=== PATIENT | female | born 1950 | race Caucasian/White ===

== ENCOUNTER → 2018-04-08 13:31 | Outpatient (CLI) | payer OTHER, MEDICARE, SELFPAY ==
--- NOTE | 2018-05-26 10:47 | ONC.NAV ---
Description: T/C-Transfer back to [facility] from [facility] Activity: HAKAN called and we talked about how she can choose to come back here to see Dr. Velez if she would like to. She said that she has an appointment with Dr. Clay at [facility] already set for next month. I encouraged her to talk with him about it, but if she would like to return here, we wanted her to know. She thanked me and will decide over the next month what she wants to do.
== END ==
PROVIDERS: Family Provider Internal Medicine; Referring Provider Internal Medicine Hematology & Oncology; Visit Provider Internal Medicine
DX: M85.852 Other specified disorders of bone density and structure, left thigh (principal); Z78.0 Asymptomatic menopausal state; Z85.3 Personal history of malignant neoplasm of breast; Z82.62 Family history of osteoporosis
CPT/HCPCS: 77080

== ENCOUNTER → 2020-08-01 19:25 | Outpatient (ROUT) | payer MEDICARE, SELFPAY ==
[2020-08-01 19:59] LABS: Aspartate Aminotransferase 40 IU/L (14-36); BUN Creatinine Ratio 24.7 (6-22); Blood Urea Nitrogen 18 mg/dL (7-17); Calcium 9.3 mg/dL (8.4-10.2); Carbon Dioxide 30 mmol/L (22-32); Chloride 107 mmol/L (98-107); Cholesterol 124 mg/dL (140-199); Estimated Glomerular Filt Rate > 60.0 mL/min (>60); Glucose 94 mg/dL (80-110); HDL Cholesterol 53 mg/dL (40-60); HEMOLYSIS < 15 (0-50); LDL Cholesterol Calculated 51 mg/dL (<100); Potassium 4.5 mmol/L (3.4-5.1); Sodium 139 mmol/L (137-145); Triglycerides 99 mg/dL (35-150)
== END ==
PROVIDERS: Family Provider Internal Medicine; PCP Internal Medicine; Visit Provider Internal Medicine
DX: I10 Essential (primary) hypertension (principal); E78.2 Mixed hyperlipidemia
CPT/HCPCS: 80048; 80061; 84450

== ENCOUNTER → 2021-05-28 10:24 | Outpatient (CLI) | payer OTHER, SELFPAY ==
--- NOTE | 2021-05-28 | DI.US.S_ITS ---
PROCEDURE: US ABDOMEN COMPLETE INDICATIONS: ABDOMINAL PAIN TECHNIQUE: Real-time scanning was performed of the abdominal and retroperitoneal organs, with image documentation. COMPARISON: [facility], CT, IVP (ABD & PEL WWO CONTRAST), 11/14/2014, 9:46. [facility], CT, CT ABD PELVIS W CON, 11/24/2015, 17:59. [facility], US, ABDOMEN COMPLETE, 11/09/2014, 14:34. FINDINGS: Liver: The liver demonstrates prominent size. The liver demonstrates generalized moderately increased echogenicity. This decreases ultrasound sensitivity for detection of hepatic masses. Gallbladder: No findings of gallstones or sludge are seen. The gallbladder wall is not thickened, measuring 3 mm or less. No specific pericholecystic fluid is seen. The sonographic Canales sign is negative. Biliary ducts: Not well seen. Intrahepatic bile ducts are non-dilated. Extrahepatic bile duct caliber measures 4 mm. Normal is 6-7 mm or less in diameter, or 10 mm or less post-cholecystectomy. Pancreas: The pancreas is overall not well seen. Spleen: Spleen is normal in size and homogeneous in echotexture. Kidneys: Kidneys are normal in size and echotexture. Right kidney measures 12.4 cm long; left kidney measures 12.8 cm long. No hydronephrosis or nephrolithiasis. No solid masses. Likely left kidney peripelvic cysts can be seen. Aorta: Not well seen, yet no aneurysm can be seen. Iliacs: Not well seen. No aneurysm. IVC: Intrahepatic inferior vena cava is patent. Miscellaneous: No free abdominal fluid. This study is limited by body habitus. IMPRESSION: Limited study demonstrating an enlarged, fatty liver. Incidental note is made of: Left kidney peripelvic cysts Dictated by: Olivier Laura M.D. on 05/28/2021 at 10:16 Approved by: Olivier Laura M.D. on 05/28/2021 at 10:19
== END ==
PROVIDERS: Family Provider Internal Medicine; PCP Internal Medicine; Referring Provider Internal Medicine; Visit Provider Internal Medicine
DX: R10.9 Unspecified abdominal pain (principal); K76.0 Fatty (change of) liver, not elsewhere classified; N28.1 Cyst of kidney, acquired
CPT/HCPCS: 76700

== ENCOUNTER → 2021-07-11 12:44 | Outpatient (CLI) | payer OTHER, SELFPAY ==
--- NOTE | 2021-07-11 12:46 | DI.US.S_ITS ---
PROCEDURE: US PELVIC COMPLETE INDICATIONS: OVARIAN CYST TECHNIQUE: Real-time scanning was performed of the pelvic organs, with image documentation. Additional endovaginal scanning was necessary due to incomplete visualization of the adnexal and endometrial structures by transabdominal scanning. COMPARISON: [facility], , PELVIC COMPLETE, 02/26/2016, 14:36. FINDINGS: Uterus: Prior hysterectomy. Ovaries: Neither normal ovaries seen. Right adnexal simple cyst again visualized measuring up to 3.7 cm (previously 2.7 cm) Other: No pathologic free abdominal or pelvic fluid. IMPRESSION: Simple cyst within the right adnexa slightly increased in size compared to prior examination now measuring up to 3.7 cm. Continued annual sonographic surveillance is recommended. Dictated by: Juan RICKETTS Interpreted: Yvan Boyd MD on 07/11/2021 at 13:14 Transcribed by: AARON on 07/11/2021 at 13:17 Approved by: Yvan Boyd M.D. on 07/11/2021 at 14:32
== END ==
PROVIDERS: Family Provider Internal Medicine; PCP Internal Medicine; Referring Provider Internal Medicine; Visit Provider Internal Medicine
DX: N83.291 Other ovarian cyst, right side (principal)
CPT/HCPCS: 76830; 76856

== ENCOUNTER → 2022-10-10 15:34 | Outpatient (CLI) | payer MEDICARE, SELFPAY ==
--- NOTE | 2022-10-10 15:36 | DI.MRI.S_ITS ---
PROCEDURE: MR LUMBAR SPINE WO CON INDICATIONS: spinal stenosis TECHNIQUE: Noncontrast sagittal T1 spin echo and T2 fast echo, sagittal STIR, and T2 fast spin echo through the lumbar spine. In cases with scoliosis, additional coronal T2 fast spin echo may be performed. COMPARISON: [facility], , L-SPINE WITHOUT CONTRAST, 10/01/2016, 16:57. FINDINGS: Image quality: Excellent. Alignment and Curvature: There is normal bony alignment. Bone Marrow: Marrow is of normal overall signal. No acute vertebral body compression fractures. Spinal Cord: Conus medullaris terminates at the L1 level. Visualized cord demonstrates normal signal and size. Paraspinous Soft Tissues: No paravertebral masses. T12-L1: Normal appearance. L1-L2: Normal appearance. L2-L3: Mild disc space narrowing and circumferential disc bulge without central stenosis. No foraminal stenosis L3-L4: Disc space narrowing with circumferential disc bulge and superimposed central protrusion results in moderate central stenosis. Moderate bilateral foraminal stenosis L4-L5: Disc space narrowing and circumferential disc bulge noted. Left hemilaminectomy. Hypertrophic facet joints. No central stenosis. Moderate left and no right foraminal stenosis L5-S1: Disc space narrowing and circumferential disc bulge with hypertrophic facet joints present. Mild central stenosis. Moderate left and mild right foraminal stenosis IMPRESSION: Multilevel degenerative disc disease and arthropathy results in varying degrees of central and foraminal stenosis including moderate central stenosis at L3-4 as result of disc bulge and superimposed central protrusion. Prior left hemilaminotomy noted at L4-5 Approved by: Emile Tobias M.D. on 10/10/2022 at 18:00
== END ==
PROVIDERS: Family Provider Internal Medicine; PCP Internal Medicine; Referring Provider Internal Medicine; Visit Provider Internal Medicine
DX: M48.07 Spinal stenosis, lumbosacral region (principal); M48.061 Spinal stenosis, lumbar region without neurogenic claudication; M51.36 Other intervertebral disc degeneration, lumbar region; M51.37 Other intervertebral disc degeneration, lumbosacral region; M47.816 Spondylosis without myelopathy or radiculopathy, lumbar region; M47.817 Spondylosis without myelopathy or radiculopathy, lumbosacral region; M54.50 Low back pain, unspecified; G89.29 Other chronic pain
CPT/HCPCS: 72148

== ENCOUNTER → 2022-12-27 09:29 | Outpatient (CLI) | payer MEDICARE, SELFPAY ==
[2022-12-27 14:52] LABS: Alanine Aminotransferase 46 IU/L (<35); Albumin 4.4 g/dL (3.5-5.0); Albumin Globulin Ratio 1.5 (1.0-2.8); Alkaline Phosphatase 117 U/L (38-126); Aspartate Aminotransferase 47 IU/L (14-36); BUN Creatinine Ratio 23.5 (6-22); Bilirubin Total 0.9 mg/dL (0.2-1.3); Blood Urea Nitrogen 16 mg/dL (7-17); Calcium 9.4 mg/dL (8.4-10.2); Carbon Dioxide 25 mmol/L (22-32); Chloride 106 mmol/L (98-107); Cholesterol 137 mg/dL (140-199); Estimated Glomerular Filt Rate > 60 mL/min (>60); Glucose 97 mg/dL (80-110); HDL Cholesterol 55 mg/dL (40-60); HEMOLYSIS 27 (0-50); LDL Cholesterol Calculated 65 mg/dL (<100); Potassium 4.3 mmol/L (3.4-5.1); Sodium 141 mmol/L (137-145); Total Protein 7.4 g/dL (6.3-8.2); Triglycerides 84 mg/dL (35-150)
[2022-12-27 15:36] LABS: TSH w/ Reflex to FT4 2.61 uIU/mL (0.47-4.68)
[2022-12-28 05:17] LABS: x Labcorp Estim. Avg Glu (eAG) 123 mg/dL (.); x Labcorp Hemoglobin A1c 5.9 % (4.8-5.6)
== END ==
PROVIDERS: Family Provider Internal Medicine; PCP Internal Medicine; Referring Provider Internal Medicine; Visit Provider Internal Medicine
DX: E78.2 Mixed hyperlipidemia; C50.912 Malignant neoplasm of unspecified site of left female breast; I10 Essential (primary) hypertension
CPT/HCPCS: 36415; 80053; 80061; 83036; 84443

== ENCOUNTER → 2023-04-02 11:21 | Outpatient (CLI) | payer MEDICARE, SELFPAY ==
--- NOTE | 2023-04-02 11:22 | DI.US.S_ITS ---
PROCEDURE: US ABDOMEN LIMITED INDICATIONS: RIGHT UPPER QUADRANT PAIN TECHNIQUE: Real-time scanning was performed of the abdominal and retroperitoneal organs, with image documentation. COMPARISON: , , US ABDOMEN COMPLETE, 05/28/2021, 10:39. FINDINGS: Liver: Hepatic parenchyma shows diffuse increased echogenicity consistent with fatty infiltration. Gallbladder: Sonolucent without cholelithiasis. No gallbladder wall thickening. No pericholecystic fluid or Canales's sign. Common Bile Duct: 4.5 mm. Pancreas: Unremarkable as visualized Right Kidney: Mild fullness of the right renal collecting system without alex hydronephrosis IMPRESSION: 1. Mild fullness of the right renal collecting system without alex hydronephrosis may reflect an extrarenal pelvis. 2. Hepatic fatty infiltration Approved by: Emile Tobias M.D. on 04/02/2023 at 20:02
== END ==
PROVIDERS: Family Provider Internal Medicine; PCP Internal Medicine; Referring Provider Internal Medicine; Visit Provider Internal Medicine
DX: R10.11 Right upper quadrant pain (principal); K76.0 Fatty (change of) liver, not elsewhere classified
CPT/HCPCS: 76705

== ENCOUNTER → 2023-07-16 14:43 | Outpatient (CLI) | payer MEDICARE, SELFPAY ==
--- NOTE | 2023-07-16 14:45 | DI.US.S_ITS ---
PROCEDURE: US PELVIC COMPLETE INDICATIONS: ovarian cyst followup TECHNIQUE: Real-time scanning was performed of the pelvic organs, with image documentation. Additional endovaginal scanning was necessary due to incomplete visualization of the adnexal and endometrial structures by transabdominal scanning. COMPARISON: [facility], CT, IVP (ABD & PEL WWO CONTRAST), 11/14/2014, 9:46. [facility], US, US PELVIC COMPLETE, 07/11/2021, 12:51. FINDINGS: Uterus: Status post hysterectomy Ovaries: The ovaries are not visualized. In the right adnexa there is an anechoic cystic structure measuring 4.1 x 3.4 x 3.8 cm, similar to the prior ultrasound when it measured 3.7 x 3.3 x 3.5 cm. There is no associated soft tissue component. Other: No pathologic free abdominal or pelvic fluid. IMPRESSION: Right adnexal cystic structure is unchanged compared to ultrasound on 07/11/2021. This was also present on a more remote CT on 11/14/2014 and is therefore likely benign. We strive to produce accurate, complete, and clear reports of imaging services. To assist us in improving patient care, this report was composed using standard report templates and voice recognition software. Therefore, it may contain abnormal punctuation, insertions and/or omissions. Occasional wrong-word or sound-alike substitutions may occur. Though we review the report and make efforts to correct it, we do recommend that the report be read carefully in proper context to recognize any text inaccuracies. Dictated by: Mario Ye M.D. on 07/16/2023 at 17:44 Approved by: Mario Ye M.D. on 07/16/2023 at 17:47
[2023-07-16 15:14] LABS: Hemoglobin A1C% w Est Avg Glu 6.1 % (4.0-6.0)
[2023-07-16 15:20] LABS: BUN Creatinine Ratio 17.5 (6-22); Blood Urea Nitrogen 14 mg/dL (7-17); Calcium 9.7 mg/dL (8.4-10.2); Carbon Dioxide 25 mmol/L (22-32); Chloride 107 mmol/L (98-107); Estimated Glomerular Filt Rate > 60 mL/min (>60); Glucose 104 mg/dL (80-110); HEMOLYSIS < 15 (0-50); Potassium 3.8 mmol/L (3.4-5.1); Sodium 139 mmol/L (137-145)
== END ==
PROVIDERS: Family Provider Internal Medicine; PCP Internal Medicine; Referring Provider Internal Medicine; Visit Provider Internal Medicine
DX: N83.209 Unspecified ovarian cyst, unspecified side (principal); N94.89 Other specified conditions associated with female genital organs and menstrual cycle; R73.01 Impaired fasting glucose; I10 Essential (primary) hypertension; Z90.710 Acquired absence of both cervix and uterus
CPT/HCPCS: 36415; 76830; 76856; 80048; 83036

== ENCOUNTER → 2023-08-18 11:00 | Outpatient (CLI) | payer MEDICARE, SELFPAY ==
--- NOTE | 2023-08-18 11:01 | DI.MRI.S_ITS ---
PROCEDURE: MR LUMBAR SPINE WO CON INDICATIONS: Radiculopathy, lumbar region TECHNIQUE: Noncontrast sagittal T1 spin echo and T2 fast echo, sagittal STIR, and T2 fast spin echo through the lumbar spine. In cases with scoliosis, additional coronal T2 fast spin echo may be performed. COMPARISON: [facility], CR, XR LUMBAR SPINE FLEXION EXTENSION, 07/16/2023, 13:06. [facility], MR, MR LUMBAR SPINE WO CON, 10/10/2022, 15:55. FINDINGS: Image quality: Excellent. Alignment and Curvature: There is normal bony alignment. No significant change. Disc desiccation L3-4, L4-5, and L5-S1. No acute progression in disc height loss. Bone Marrow: Marrow is of normal overall signal. L2 and L3 vertebral body hemangioma. No acute vertebral body compression fractures. No marrow edema. Spinal Cord: Conus medullaris terminates at the L1 level. Visualized cord demonstrates normal signal and size. Paraspinous Soft Tissues: No paravertebral masses. T12-L1: Normal appearance. L1-L2: Mild broad-based left foraminal disc bulge has developed since the prior study and there is new mild neural foraminal narrowing on the left. L2-L3: Mild disc desiccation and minor circumferential disc bulge without progression. Mild facet arthropathy and ligamentum flavum hypertrophy. L3-L4: Disc desiccation and mild circumferential disc bulge. Focal central disc protrusion with cranial and caudal disc extrusion 6-7 mm above and below the disc line, mildly progressed since the prior exam. Similar degree of moderate central canal stenosis and narrowing of the left lateral recess. Mild to moderate stable left foraminal stenosis. L4-L5: Left hemilaminectomy change. Mild circumferential disc bulge and mild facet arthropathy. Facet arthropathy and disc material contribute to [id number] left foraminal narrowing, stable. No new central canal stenosis. L5-S1: Mild broad-based circumferential disc bulge with mild, stable central canal stenosis. Mild facet arthropathy. Mild right and moderate left foraminal narrowing. No significant change. IMPRESSION: 1. Slight progression of degree of disc extrusion at the L3-4 level without significant progression of central canal stenosis and left lateral recess narrowing. 2. Multilevel circumferential disc bulges with multilevel mainly left foraminal stenosis. No other significant change since the prior study. Dictated by: Clau Moser M.D. on 08/18/2023 at 15:46 Approved by: Clau Moser M.D. on 08/18/2023 at 15:59
== END ==
PROVIDERS: Family Provider Internal Medicine; PCP Internal Medicine; Referring Provider Physician Assistant Surgical; Visit Provider Physician Assistant Surgical
DX: M51.16 Intervertebral disc disorders with radiculopathy, lumbar region (principal); M51.17 Intervertebral disc disorders with radiculopathy, lumbosacral region; M48.061 Spinal stenosis, lumbar region without neurogenic claudication; M48.07 Spinal stenosis, lumbosacral region; Z98.890 Other specified postprocedural states
CPT/HCPCS: 72148

== ENCOUNTER → 2023-09-29 11:50 | Outpatient (CLI) | payer MEDICARE, SELFPAY ==
[2023-09-29 13:23] LABS: BUN Creatinine Ratio 23.6 (6-22); Blood Urea Nitrogen 17 mg/dL (7-17); Calcium 9.7 mg/dL (8.4-10.2); Carbon Dioxide 26 mmol/L (22-32); Chloride 106 mmol/L (98-107); Estimated Glomerular Filt Rate > 60 mL/min (>60); Glucose 101 mg/dL (80-110); HEMOLYSIS < 15 (0-50); Potassium 4.5 mmol/L (3.4-5.1); Sodium 140 mmol/L (137-145)
== END ==
PROVIDERS: Family Provider Internal Medicine; PCP Internal Medicine; Referring Provider Internal Medicine; Visit Provider Internal Medicine
DX: I10 Essential (primary) hypertension (principal)
CPT/HCPCS: 36415; 80048

== ENCOUNTER → 2024-07-05 14:12 | Outpatient (CLI) | payer MEDICARE, SELFPAY ==
[2024-07-05 16:27] LABS: Hematocrit 38.7 % (36-46); Hemoglobin 12.6 g/dL (12.0-16.0); Mean Corpuscular HGB Conc 32.5 % (30-36); Mean Corpuscular Hemoglobin 28.8 PG (26-34); Mean Corpuscular Volume 88.5 fL (80-100); Platelet Count 202 X10^3/uL (150-400); Red Blood Cell Count 4.37 X10^6/uL (4.0-5.2); Red Cell Distribution Width 15.7 % (11.6-14.8)
[2024-07-05 16:35] LABS: Hemoglobin A1C% w Est Avg Glu 5.7 % (4.0-6.0)
[2024-07-05 17:16] LABS: Aspartate Aminotransferase 30 IU/L (14-36); BUN Creatinine Ratio 26.5 (6-22); Blood Urea Nitrogen 18 mg/dL (7-17); Calcium 9.9 mg/dL (8.4-10.2); Carbon Dioxide 26 mmol/L (22-32); Chloride 106 mmol/L (98-107); Cholesterol 145 mg/dL (140-199); Estimated Glomerular Filt Rate > 60 mL/min (>60); Glucose 90 mg/dL (80-110); HDL Cholesterol 61 mg/dL (40-60); HEMOLYSIS < 15 (0-50); LDL Cholesterol Calculated 62 mg/dL (<100); Potassium 3.9 mmol/L (3.4-5.1); Sodium 138 mmol/L (137-145); Triglycerides 108 mg/dL (35-150)
== END ==
LOC: LAB 14:13
PROVIDERS: Family Provider Internal Medicine; PCP Internal Medicine; Referring Provider Internal Medicine; Visit Provider Internal Medicine
DX: E78.2 Mixed hyperlipidemia (principal); R73.01 Impaired fasting glucose; I10 Essential (primary) hypertension; M54.42 Lumbago with sciatica, left side; G89.29 Other chronic pain; F41.1 Generalized anxiety disorder; K21.9 Gastro-esophageal reflux disease without esophagitis; C50.912 Malignant neoplasm of unspecified site of left female breast; Z17.0 Estrogen receptor positive status [ER+]; N83.209 Unspecified ovarian cyst, unspecified side; E66.9 Obesity, unspecified; Z68.30 Body mass index [BMI] 30.0-30.9, adult; Z86.0100 Personal history of colon polyps, unspecified; Z80.0 Family history of malignant neoplasm of digestive organs
CPT/HCPCS: 36415; 80048; 80061; 83036; 84450; 85027

== ENCOUNTER 2024-07-14 09:59 | Day surgery (SDC) | payer MEDICARE, SELFPAY ==
--- NOTE | 2024-07-14 10:23 | P.HP_ITS ---
History of Present Illness History of Present Illness Chief complaint: Colonoscopy w/poss bx Narrative: Family history of colon cancer in her father with personal history of colon polyps [facility] Medical History Major depressive disorder, recurrent, moderate Family history of colon cancer in father History of colonic polyps Ovarian cyst Impaired fasting glucose Chronic low back pain Obesity (BMI 30.0-34.9) Generalized anxiety disorder Chronic low back pain GERD without esophagitis Mixed hyperlipidemia Essential hypertension GERD (gastroesophageal reflux disease) Family History Mother Hypertension Stroke Sister Hypertension Diabetes mellitus Grandmother Hypertension Stroke Grandfather Gallstones Social History marital status: details: (Les) 05/28/2024 household members: spouse occupational status: employed Smoking Status: Never smoker alcohol intake: current substance use type: does not use Meds Home Medications and Allergies Home Medications Medication Instructions Recorded Confirmed Type Parking Permit... #1 ea 09/26/22 07/05/24 Rx acyclovir 400 mg tablet (Zovirax) 400 mg PO DAILY PRN #0 tabs 09/26/22 07/05/24 History azelastine 137 mcg (0.1 %) nasal 1 spray intranasal BID 09/26/22 07/05/24 History spray ipratropium bromide 42 mcg (0.06 2 spray intranasal TID PRN allergy 09/26/22 07/05/24 History %) nasal spray symptoms melatonin 10 mg capsule 10 mg PO BEDTIME PRN 09/26/22 07/05/24 History metronidazole 1 % topical gel 1 applic topical DAILY #0 grams 09/26/22 07/05/24 History (Metrogel) Cartia XT 120 mg capsule,extended 120 mg PO DAILY #90 caps 10/06/23 07/14/24 Rx release (diltiazem HCl) methocarbamol 500 mg tablet 500 mg PO BID PRN spasms #60 tabs 03/23/24 07/14/24 Rx nystatin 100,000 unit/gram topical 1 applic topical BID PRN rash #30 03/23/24 07/05/24 Rx cream grams omeprazole 20 mg capsule,delayed 20 mg PO DAILY #90 caps 03/23/24 07/14/24 Rx release triamcinolone acetonide 0.1 % 1 applic topical BID #30 grams 03/23/24 07/05/24 Rx topical cream rosuvastatin 10 mg tablet 10 mg PO DAILY chocestrol #90 tabs 06/16/24 07/05/24 Rx hydrocortisone 2.5 % topical cream applic topical .PRN 07/05/24 07/05/24 History ketoconazole 2 % topical cream applic topical .PRN 07/05/24 07/05/24 History minoxidil 10 mg tablet 10 mg PO DAILY #90 tabs 07/05/24 07/05/24 Rx Allergies Allergy/AdvReac Type Severity Reaction Status Date / Time sertraline Allergy Severe Rash Verified 07/05/24 13:23 amlodipine Allergy Intermediate Rash Verified 07/05/24 13:23 losartan Allergy Intermediate Rash Verified 07/05/24 13:23 metoprolol Allergy Mild Rash Verified 07/05/24 13:23 mirtazapine Allergy Mild Rash Verified 07/05/24 13:23 Sulfa (Sulfonamide Allergy Unknown HIVES-SEVERITY Verified 07/05/24 13:23 Antibiotics) NOT LISTED [SULFA (SULFONAMIDE ANTIBIOTICS)] Exam Narrative Exam Narrative: Oropharynx free of lesions Chest clear to auscultation percussion Cardiac exam reveals no S3 or murmur Assessment & Plan Assessment & Plan narrative: Personal history of colon polyps and family history of colon cancer in a first- degree relative. Need for follow-up colonoscopy at a 5 year interval. Risks, benefits, alternatives have been explained. Time-Based Coding :: [TOTAL MINUTES] spent with patient and on the chart (including review of chart, obtaining history, exam, reviewing outside data, placing orders, documenting exam and treatment plan, and counseling patient) on [DATE].
--- NOTE | 2024-07-14 10:24 | P.OP.COLON_ITS ---
Operative Date/Time/Diagnoses Date of procedure: 07/14/24 Pre-op diagnosis: See indication and findings Procedure & Clinicians Study performed: Colonoscopy Indications: Personal history of colon polyps and family history of colon cancer in a first- degree relative Surgeon: Ama Vega Procedure Notes Procedure in detail: After informed consent was obtained the patient was placed in left lateral decubitus position. The video colonoscope was introduced the rectum slowly advanced cecum. Preparation was good. On slow withdrawal mucosa was carefully examined. The scope was removed. The patient tolerated procedure well. Blood loss none Complications none Sedation mac Findings 1. Moderate sigmoid diverticulosis. 2. Possible diminutive polyp at 70 cm unable to relocate. 3. Otherwise negative colonoscopy to cecum Rebecca should have follow-up colonoscopy in 5 years.
[2024-07-14 10:30] VITALS: BP 147/82; PULSE 85; RESP 12; TEMP 36.3; O2SAT 98
[2024-07-14 10:58] VITALS: BP 113/49; PULSE 75; RESP 18; TEMP 36.5; O2SAT 93
[2024-07-14 11:03] VITALS: BP 123/52; PULSE 72; RESP 18; O2SAT 94
[2024-07-14 11:08] VITALS: BP 133/61; PULSE 71; RESP 17; O2SAT 94
[2024-07-14 11:13] VITALS: BP 141/64; PULSE 69; RESP 14; TEMP 36.6; O2SAT 94
== END 2024-07-14 11:21 | disposition home or self-care (01) ==
PROVIDERS: Family Provider Internal Medicine; PCP Internal Medicine; Referring Provider Internal Medicine Gastroenterology; Visit Provider Internal Medicine Gastroenterology
PROC: 0DJD8ZZ Inspection of Lower Intestinal Tract, Via Natural or Artificial Opening Endoscopic (ICD-10-PCS; CPT 45378; principal; 2024-07-14 11:00)
DX: Z12.11 Encounter for screening for malignant neoplasm of colon (principal); Z86.0100 Personal history of colon polyps, unspecified; Z80.0 Family history of malignant neoplasm of digestive organs; K57.30 Diverticulosis of large intestine without perforation or abscess without bleeding
CPT/HCPCS: G0105; J2704